=== PATIENT | female | born 1970 | race Caucasian/White ===

== ENCOUNTER 2017-08-10 10:04 | Emergency (ER) | payer MEDICAID, OTHER ==
[~2017-08-10] VITALS: Ht 167.6 cm; Wt 77.0 kg
[~2017-08-10 10:04] MED LIST: ALBU8HFA PO
[2017-08-10 10:15] VITALS: BP 135/91
[2017-08-10] MEDS ORDERED: LEVO100T PO (11:52)
[2017-08-10] MEDS ORDERED: POLY17PO10 PO (11:52)
== END 2017-08-10 12:08 | disposition home or self-care (01) ==
LOC: ER 10:05
DX: K59.00 Constipation, unspecified (principal); J45.909 Unspecified asthma, uncomplicated; Z79.899 Other long term (current) drug therapy; Z90.49 Acquired absence of other specified parts of digestive tract
CPT/HCPCS: 99283

== ENCOUNTER 2017-08-17 09:00 | Emergency (ER) | payer MEDICAID ==
[~2017-08-17] VITALS: Ht 167.6 cm; Wt 77.2 kg
[~2017-08-17 09:00] MED LIST changes: +LEVO100T PO; +POLY17PO10 PO
[2017-08-17 09:10] VITALS: BP 174/85
[2017-08-17] MEDS ORDERED: CYCL-1 PO (09:31)
[2017-08-17] MEDS ORDERED: DIPH25CA83 PO (09:31)
== END 2017-08-17 09:47 | disposition home or self-care (01) ==
LOC: ER 09:01
DX: T78.2XXA Anaphylactic shock, unspecified, initial encounter (principal); J45.909 Unspecified asthma, uncomplicated
CPT/HCPCS: 99283

== ENCOUNTER 2017-09-08 10:22 | Emergency (ER) | payer MEDICAID ==
[~2017-09-08] VITALS: Ht 584.7 cm; Wt 77.0 kg
[~2017-09-08 10:22] MED LIST changes: +CYCL-1 PO; +DIPH25CA83 PO
[2017-09-08 10:25] VITALS: BP 135/89
== END 2017-09-08 11:50 | disposition home or self-care (01) ==
LOC: ER 10:24
DX: Z76.89 Persons encountering health services in other specified circumstances (principal); K59.00 Constipation, unspecified; J45.909 Unspecified asthma, uncomplicated; Z90.49 Acquired absence of other specified parts of digestive tract; Z59.0 Homelessness
CPT/HCPCS: 99281

== ENCOUNTER 2017-10-09 16:55 | Emergency (ER) | payer MEDICAID, OTHER ==
[~2017-10-09] VITALS: Ht 170.2 cm; Wt 76.0 kg
[~2017-10-09 16:55] MED LIST changes: -ALBU8HFA PO; -POLY17PO10 PO
[2017-10-09] MEDS ORDERED: acetaminophen 325mg tablet PO STA (17:25)
[2017-10-09] MEDS ORDERED: normal saline 1000ML IV soln IV ONE (17:25)
[2017-10-09 17:49] LABS: BASOPHILS % (AUTO) 0.2 % (0-1); EOSINOPHILS % (AUTO) 0.1 % (0-6); HEMATOCRIT 46.3 % (35.0-45.0); HEMOGLOBIN 15.9 g/dl (12.0-16.0); LYMPHOCYTES # (AUTO) 0.5 X10'3 (1.1-4.8); LYMPHOCYTES % (AUTO) 3.5 % (21-51); MEAN CORPUSCULAR HGB CONC 34.2 % (33.0-36.5); MEAN CORPUSCULAR VOLUME 87.8 FL (78-98); MEAN PLATELET VOLUME 8.3 FL (7.4-10.4); MONOCYTES # (AUTO) 0.4 X10'3 (0-0.9); MONOCYTES % (AUTO) 2.9 % (2-12); NEUTROPHILS # (AUTO) 12.6 X10'3 (1.8-7.7); NEUTROPHILS % (AUTO) 93.3 % (42-75); PLATELET COUNT 275 X10'3 (140-440); RED BLOOD COUNT 5.28 X10'6 (4.20-5.60); RED CELL DISTRIBUTION WIDTH 12.6 % (11.5-14.5); WHITE BLOOD COUNT 13.5 X10'3 (4.5-11.0)
[2017-10-09] MEDS ORDERED: ondansetron/PF 4mg/2ml inj IV ONE (17:50)
[2017-10-09 18:05] LABS: ALANINE AMINOTRANSFERASE 25 U/L (12-78); ALBUMIN 4.1 G/DL (3.4-5.0); ALBUMIN/GLOBULIN RATIO 1.1 (1.1-1.5); ALKALINE PHOSPHATASE 77 IU/L (46-116); ANION GAP 14 (8-16); ASPARTATE AMINO TRANSFERASE 14 U/L (10-37); BILIRUBIN,TOTAL 0.6 MG/DL (0.1-1.0); BLOOD UREA NITROGEN 12 MG/DL (7-18); CALCIUM 8.7 MG/DL (8.5-10.1); CHLORIDE 100 MMOL/L (99-107); CREATININE 0.92 MG/DL (0.40-0.90); GLUCOSE 112 MG/DL (70-104); MAGNESIUM 1.7 MG/DL (1.5-2.4); POTASSIUM 3.4 MMOL/L (3.5-5.1); SODIUM 139 MMOL/L (135-145); TOTAL CARBON DIOXIDE 25.3 MMOL/L (24-32); TOTAL PROTEIN 7.7 G/DL (6.4-8.2); eGFR 66 ML/MIN
[2017-10-09 18:20] LABS: TOTAL CELLS COUNTED 100
[2017-10-09 18:21] LABS: PLATELET ESTIMATE NORMAL
[2017-10-09] MEDS ORDERED: ibuprofen tablet 400 MG TABLET PO ONE (18:30)
[2017-10-09 18:35] LABS: CLARITY,URINE CLEAR (Clear); COLOR,URINE YELLOW (Yellow); GLUCOSE, URINE NEGATIVE (Neg); KETONES,URINE TRACE mg/dl (Neg); LEUKOCYTE ESTERASE ,URINE NEGATIVE (Neg); NITRITES, URINE NEGATIVE (Neg); OCCULT BLOOD,URINE TRACE-INTACT (Neg); PH,URINE 7.5 (4.8-8.0); PROTEIN,URINE NEGATIVE (Neg); UROBILINOGEN,URINE 0.2 E.U/dL (0.2-1.0)
[2017-10-09 18:50] LABS: UA COLLECTION TYPE CLN CATCH MIDSTREAM
[2017-10-09 18:51] LABS: URINE HCG NEGATIVE (NEG)
[2017-10-09 18:54] LABS: BACTERIA,URINE NONE SEEN /HPF (Neg); RBC,URINE 0-2 /HPF (0-2); SQUAMOUS EPITHELIAL CELL,UR FEW /LPF (FEW); WBC,URINE 0-4 /HPF (0-4)
[2017-10-09] MEDS ORDERED: ketorolac trometh. 30mg/ml inj. IV ONE ×2 (19:05→19:20)
[2017-10-09] MEDS ORDERED: ONDA4TAB6 PO (21:37)
[2017-10-09 21:48] VITALS: BP 139/90
== END 2017-10-09 21:54 | disposition home or self-care (01) ==
LOC: ER 16:56
DX: D72.829 Elevated white blood cell count, unspecified (principal); R11.2 Nausea with vomiting, unspecified; J45.909 Unspecified asthma, uncomplicated; Z90.49 Acquired absence of other specified parts of digestive tract; Z59.0 Homelessness; Z88.8 Allergy status to other drugs, medicaments and biological substances; Z79.899 Other long term (current) drug therapy
CPT/HCPCS: 36415; 71045; 74176; 80053; 81001; 81025; 83605; 83735; 84145; 85025; 87040; 96361; 96374; 96375; 99285; J1885; J2405; J7030

== ENCOUNTER 2017-10-11 15:29 | Emergency (ER) | payer MEDICAID, OTHER ==
[~2017-10-11] VITALS: Ht 170.2 cm; Wt 78.2 kg
[~2017-10-11 15:29] MED LIST changes: +ONDA4TAB6 PO
[2017-10-11 16:00] LABS: BASOPHILS % (AUTO) 0.3 % (0-1); EOSINOPHILS # (AUTO) 0.2 X10'3 (0-0.9); EOSINOPHILS % (AUTO) 2.2 % (0-6); HEMATOCRIT 40.7 % (35.0-45.0); HEMOGLOBIN 14.3 g/dl (12.0-16.0); MEAN CORPUSCULAR HEMOGLOBIN 30.3 PG (27.0-31.0); MEAN CORPUSCULAR HGB CONC 35.1 % (33.0-36.5); MEAN CORPUSCULAR VOLUME 86.5 FL (78-98); MEAN PLATELET VOLUME 8.4 FL (7.4-10.4); MONOCYTES # (AUTO) 0.4 X10'3 (0-0.9); MONOCYTES % (AUTO) 5.3 % (2-12); NEUTROPHILS # (AUTO) 5.4 X10'3 (1.8-7.7); NEUTROPHILS % (AUTO) 78.2 % (42-75); PLATELET COUNT 211 X10'3 (140-440); RED BLOOD COUNT 4.71 X10'6 (4.20-5.60); RED CELL DISTRIBUTION WIDTH 12.8 % (11.5-14.5)
[2017-10-11 16:15] LABS: ALANINE AMINOTRANSFERASE 303 U/L (12-78); ALBUMIN 3.6 G/DL (3.4-5.0); ALBUMIN/GLOBULIN RATIO 1.1 (1.1-1.5); ALKALINE PHOSPHATASE 76 IU/L (46-116); ANION GAP 9 (8-16); ASPARTATE AMINO TRANSFERASE 213 U/L (10-37); BLOOD UREA NITROGEN 8 MG/DL (7-18); BUN/CREATININE RATIO 9.6 (6.6-38.0); CALCIUM 8.3 MG/DL (8.5-10.1); CHLORIDE 102 MMOL/L (99-107); CREATININE 0.83 MG/DL (0.40-0.90); GLUCOSE 113 MG/DL (70-104); SODIUM 138 MMOL/L (135-145); TOTAL CARBON DIOXIDE 27.5 MMOL/L (24-32); TOTAL PROTEIN 6.9 G/DL (6.4-8.2); eGFR 74 ML/MIN
[2017-10-11 16:16] LABS: POTASSIUM 2.9 MMOL/L (3.5-5.1)
[2017-10-11 16:30] LABS: INR 1.1 INR; PROTHROMBIN TIME 11.2 SECONDS (9.0-12.0)
[2017-10-11] MEDS ORDERED: normal saline 1000ML IV soln IVB ONE (16:35)
[2017-10-11] MEDS ORDERED: ketorolac trometh. 30mg/ml inj. IV ONE (16:35)
[2017-10-11] MEDS ORDERED: famotidine/PF 10 mg/ml inj IV ONE (16:35)
[2017-10-11] MEDS ORDERED: ondansetron/PF 4mg/2ml inj IV ONE (16:35)
[2017-10-11 16:42] LABS: ETHANOL < 0.010 GM/DL (0.0-0.010)
[2017-10-11] MEDS ORDERED: ONDA4TAB9 SL (16:54)
[2017-10-11 17:55] LABS: CLARITY,URINE SLIGHTLY CLOUDY (Clear); COLOR,URINE YELLOW (Yellow); GLUCOSE, URINE NEGATIVE (Neg); KETONES,URINE NEGATIVE (Neg); LEUKOCYTE ESTERASE ,URINE TRACE (Neg); NITRITES, URINE NEGATIVE (Neg); OCCULT BLOOD,URINE MODERATE (Neg); PH,URINE 6.5 (4.8-8.0); PROTEIN,URINE NEGATIVE (Neg); URINE HCG NEGATIVE (NEG)
[2017-10-11 17:58] LABS: UA COLLECTION TYPE VOIDED
[2017-10-11 18:03] VITALS: BP 141/93
[2017-10-11 18:08] LABS: BACTERIA,URINE 2+ /HPF (Neg); MUCUS STRANDS FEW /LPF (Neg); SQUAMOUS EPITHELIAL CELL,UR MANY /LPF (FEW)
[2017-10-12] MEDS ORDERED: SIME125C77 PO (15:12)
[2017-10-12] MEDS ORDERED: POLY17PO10 PO (15:12)
== END 2017-10-11 18:04 | disposition home or self-care (01) ==
LOC: ER 15:31
DX: B34.9 Viral infection, unspecified (principal); K52.9 Noninfective gastroenteritis and colitis, unspecified; R74.0 Nonspecific elevation of levels of transaminase and lactic acid dehydrogenase [LDH]; G89.29 Other chronic pain; J45.909 Unspecified asthma, uncomplicated; Z90.49 Acquired absence of other specified parts of digestive tract; Z88.8 Allergy status to other drugs, medicaments and biological substances; Z79.899 Other long term (current) drug therapy; Z59.0 Homelessness
CPT/HCPCS: 36415; 80053; 80320; 81001; 81025; 85025; 85610; 96374; 96375; 99284; J1885; J2405; J3490; J7030

== ENCOUNTER 2017-10-12 13:43 | Emergency (ER) | payer MEDICAID, OTHER ==
[~2017-10-12] VITALS: Ht 167.6 cm; Wt 79.0 kg
[~2017-10-12 13:43] MED LIST changes: +ONDA4TAB9 SL
[2017-10-12] MEDS ORDERED: simethicone 125mg capsule PO SCH (14:40)
[2017-10-12] MEDS ORDERED: POLY17PO10 PO (15:12)
[2017-10-12] MEDS ORDERED: SIME125C77 PO (15:12)
[2017-10-12 15:35] VITALS: BP 141/97
== END 2017-10-12 15:36 | disposition home or self-care (01) ==
LOC: ER 13:44
DX: R10.84 Generalized abdominal pain (principal); K59.00 Constipation, unspecified; J45.909 Unspecified asthma, uncomplicated; Z90.49 Acquired absence of other specified parts of digestive tract; Z59.0 Homelessness; Z88.8 Allergy status to other drugs, medicaments and biological substances; Z79.899 Other long term (current) drug therapy
CPT/HCPCS: 99283

== ENCOUNTER 2018-06-01 07:55 | Emergency (ER) | payer MEDICAID, OTHER ==
[~2018-06-01] VITALS: Ht 170.2 cm; Wt 79.0 kg
[~2018-06-01 07:55] MED LIST changes: -DIPH25CA83 PO; -ONDA4TAB9 SL; +SIME125C77 PO
[2018-06-01 07:58] VITALS: BP 159/90
--- NOTE | 2018-06-01 08:15 | NUR ---
pt aware of need for a clean sample and a dirty sample of urine. pt is drinking fluids.
--- NOTE | 2018-06-01 09:21 | NUR ---
pt has been up to the bathroom multiple times trying to give a urine sample but not able to give much of a sample. not enough for a test to be run. pt drinking water and coffee. PA aware.
[2018-06-01 09:39] LABS: URINE HCG NEGATIVE (NEG)
[2018-06-01 09:42] LABS: CLARITY,URINE CLOUDY (Clear); COLOR,URINE YELLOW (Yellow); GLUCOSE, URINE NEGATIVE (Neg); KETONES,URINE TRACE mg/dl (Neg); LEUKOCYTE ESTERASE ,URINE NEGATIVE (Neg); NITRITES, URINE NEGATIVE (Neg); OCCULT BLOOD,URINE SMALL (Neg); PH,URINE 5.5 (4.8-8.0); PROTEIN,URINE NEGATIVE (Neg); UROBILINOGEN,URINE 0.2 E.U/dL (0.2-1.0)
[2018-06-01 09:45] LABS: UA COLLECTION TYPE VOIDED
[2018-06-01 09:49] LABS: SQUAMOUS EPITHELIAL CELL,UR MANY /LPF (FEW)
[2018-06-01] MEDS ORDERED: azithromycin 250mg tablet PO ONE (09:50)
[2018-06-01] MEDS ORDERED: CefTRIAXone 250MG IM Kit w/LIDOcaine IM ONE (09:50)
[2018-06-01 09:53] LABS: MUCUS STRANDS MANY /LPF (Neg)
[2018-06-01 09:56] LABS: WBC,URINE 0-4 /HPF (0-4)
[2018-06-01 09:57] LABS: RBC,URINE 0-2 /HPF (0-2)
[2018-06-01 09:59] LABS: HYALINE CASTS 0-3 /LPF (NEGATIVE)
[2018-06-01 10:01] LABS: BACTERIA,URINE 1+ /HPF (Neg)
== END 2018-06-01 10:26 | disposition home or self-care (01) ==
LOC: ER 07:56
DX: Z11.3 Encounter for screening for infections with a predominantly sexual mode of transmission (principal); N89.8 Other specified noninflammatory disorders of vagina; R45.1 Restlessness and agitation; J45.909 Unspecified asthma, uncomplicated; Z90.89 Acquired absence of other organs; Z59.0 Homelessness; Z88.8 Allergy status to other drugs, medicaments and biological substances
CPT/HCPCS: 36415; 81001; 81025; 87491; 87591; 96372; 99283; J0696

== ENCOUNTER 2018-06-06 06:49 | Emergency (ER) | payer MEDICAID ==
[~2018-06-06] VITALS: Ht 170.2 cm; Wt 78.0 kg
[2018-06-06 06:54] VITALS: BP 136/96
[2018-06-06] MEDS ORDERED: AZIT250T83 PO (07:31)
== END 2018-06-06 07:42 | disposition home or self-care (01) ==
LOC: ER 06:49
DX: J32.2 Chronic ethmoidal sinusitis (principal); J45.909 Unspecified asthma, uncomplicated; M79.7 Fibromyalgia; Z90.49 Acquired absence of other specified parts of digestive tract; Z98.51 Tubal ligation status; Z59.0 Homelessness; Z88.8 Allergy status to other drugs, medicaments and biological substances; Z79.899 Other long term (current) drug therapy
CPT/HCPCS: 99283

== ENCOUNTER 2018-06-13 12:26 | Emergency (ER) | payer MEDICAID ==
[~2018-06-13] VITALS: Ht 165.1 cm; Wt 78.0 kg
[2018-06-13 12:34] VITALS: BP 152/78
[2018-06-13 13:26] LABS: URINE HCG NEGATIVE (NEG)
[2018-06-13 13:27] LABS: CLARITY,URINE SLIGHTLY CLOUDY (Clear); COLOR,URINE YELLOW (Yellow); GLUCOSE, URINE NEGATIVE (Neg); KETONES,URINE NEGATIVE (Neg); LEUKOCYTE ESTERASE ,URINE NEGATIVE (Neg); NITRITES, URINE NEGATIVE (Neg); OCCULT BLOOD,URINE TRACE-LYSED (Neg); PH,URINE 5.5 (4.8-8.0); PROTEIN,URINE NEGATIVE (Neg); UROBILINOGEN,URINE 0.2 E.U/dL (0.2-1.0)
[2018-06-13 13:32] LABS: UA COLLECTION TYPE CLN CATCH MIDSTREAM
[2018-06-13 13:43] LABS: BACTERIA,URINE FEW /HPF (Neg); RBC,URINE 0-2 /HPF (0-2); WBC,URINE 0-4 /HPF (0-4)
[2018-06-13 13:44] LABS: MUCUS STRANDS MANY /LPF (Neg); SQUAMOUS EPITHELIAL CELL,UR MODERATE /LPF (FEW)
[2018-06-13 13:48] LABS: URINE AMPHETAMINE SCREEN NEGATIVE (Neg); URINE BARBITUATE SCREEN NEGATIVE (Neg); URINE BENZODIAZEPINES SCREEN NEGATIVE (Neg); URINE CANNABINOID SCREEN NEGATIVE (Neg); URINE COCAINE SCREEN NEGATIVE (Neg); URINE METHADONE SCREEN NEGATIVE (Neg); URINE OPIATE SCREEN NEGATIVE (Neg); URINE PHENCYCLIDINE SCREEN NEGATIVE (Neg)
[2018-06-13 14:04] LABS: BASOPHILS # (AUTO) 0.1 X10'3 (0-0.2); BASOPHILS % (AUTO) 0.6 % (0-1); EOSINOPHILS # (AUTO) 0.1 X10'3 (0-0.9); EOSINOPHILS % (AUTO) 0.9 % (0-6); HEMOGLOBIN 15.5 g/dl (12.0-16.0); LYMPHOCYTES # (AUTO) 2.2 X10'3 (1.1-4.8); LYMPHOCYTES % (AUTO) 24.4 % (21-51); MEAN CORPUSCULAR HEMOGLOBIN 28.9 PG (27.0-31.0); MEAN CORPUSCULAR HGB CONC 33.6 g/dL (33.0-36.5); MEAN CORPUSCULAR VOLUME 85.8 FL (78-98); MEAN PLATELET VOLUME 7.9 FL (7.4-10.4); MONOCYTES # (AUTO) 0.6 X10'3 (0-0.9); MONOCYTES % (AUTO) 6.1 % (2-12); NEUTROPHILS # (AUTO) 6.2 X10'3 (1.8-7.7); PLATELET COUNT 364 X10'3 (140-440); RED BLOOD COUNT 5.37 X10'6 (4.20-5.60); RED CELL DISTRIBUTION WIDTH 13.4 % (11.5-14.5); WHITE BLOOD COUNT 9.1 X10'3 (4.5-11.0)
[2018-06-13 14:29] LABS: ALANINE AMINOTRANSFERASE 26 U/L (12-78); ALBUMIN 4.1 G/DL (3.4-5.0); ALBUMIN/GLOBULIN RATIO 1.2 (1.1-1.5); ALKALINE PHOSPHATASE 62 IU/L (46-116); ANION GAP 7 (8-16); ASPARTATE AMINO TRANSFERASE 18 U/L (10-37); BILIRUBIN,TOTAL 0.4 MG/DL (0.1-1.0); BLOOD UREA NITROGEN 15 MG/DL (7-18); CALCIUM 9.2 MG/DL (8.5-10.1); CHLORIDE 102 MMOL/L (99-107); CREATININE 0.94 MG/DL (0.40-0.90); GLUCOSE 86 MG/DL (70-104); POTASSIUM 3.6 MMOL/L (3.5-5.1); SODIUM 137 MMOL/L (135-145); TOTAL CARBON DIOXIDE 27.9 MMOL/L (24-32); TOTAL PROTEIN 7.4 G/DL (6.4-8.2); eGFR 64 ML/MIN
== END 2018-06-13 14:56 | disposition home or self-care (01) ==
LOC: ER 12:27
DX: R53.1 Weakness (principal); M79.7 Fibromyalgia; J45.909 Unspecified asthma, uncomplicated; Z90.49 Acquired absence of other specified parts of digestive tract; Z98.51 Tubal ligation status; Z59.0 Homelessness; Z88.1 Allergy status to other antibiotic agents; Z79.899 Other long term (current) drug therapy
CPT/HCPCS: 36415; 80053; 80305; 81001; 81025; 85025; 99283

== ENCOUNTER 2020-04-28 05:06 | Emergency (ER) | payer MEDICAID ==
[~2020-04-28] VITALS: Ht 170.2 cm; Wt 93.2 kg
[2020-04-28 05:10] VITALS: BP 184/101
--- NOTE | 2020-04-28 05:20 | NUR ---
patient observed ambulating with a steady gait after efusing a wheelchair frim triage to room [address] Elizabeth at bedside assessing patient, [facility]sm intact
--- NOTE | 2020-04-28 05:22 | NUR ---
verbalized to [facility] wrap left foot prior to x-ray
== END 2020-04-28 05:59 | disposition home or self-care (01) ==
LOC: ER 05:07
DX: S93.602A Unspecified sprain of left foot, initial encounter (principal); M79.672 Pain in left foot; J45.909 Unspecified asthma, uncomplicated; Z90.89 Acquired absence of other organs; Z98.51 Tubal ligation status; Z59.0 Homelessness; Z88.8 Allergy status to other drugs, medicaments and biological substances; Z79.899 Other long term (current) drug therapy; X58.XXXA Exposure to other specified factors, initial encounter; Y93.89 Activity, other specified; Y92.89 Other specified places as the place of occurrence of the external cause; Y99.8 Other external cause status
CPT/HCPCS: 73630; 99283